=== PATIENT | female | born 1990 | race African-American/Black ===

== ENCOUNTER 2016-06-16 08:51 | Emergency (ER) | payer OTHER ==
[2016-06-16] MEDS ORDERED: Ondansetron HCl/PF 4 MG/2 ML Vial ONE (09:14)
[2016-06-16] MEDS ORDERED: Sodium Chloride 0.9% 1,000 ML ONE ×2 (09:14→10:09)
[2016-06-16] MEDS ORDERED: Acetaminophen 325 MG TAB ONE (09:14)
[2016-06-16 09:32] LABS: #Basophils 0.1 thou/uL (0.0-0.2); #Lymphocytes 0.4 thou/uL (1.20-3.40); #Monocytes 0.4 thou/uL (0.11-0.59); %Eosinophils 0.5 % (0.0-10.0); %Lymphocytes 6.4 % (21.0-51.0); %Monocytes 7.3 % (0.0-10.0); Hematocrit 33.1 % (36.0-47.0); Mean Platelet Volume 5.9 fL (7.4-10.4); White Blood Cell (WBC) Count 5.8 thou/uL (4.8-10.8)
[2016-06-16 09:43] LABS: ALT (SGPT) 10 U/L (0-55); AST (SGOT) 17 U/L (5-34); Alkaline Phosphatase 83 U/L (40-150); Anion Gap 16 mmol/L (10-20); BUN (Urea Nitrogen) 3 mg/dL (7.0-18.7); Bilirubin, Total 1.1 mg/dL (0.2-1.2); Calc. Creatinine Clearance 0 mL/min (70-130); Calcium 9.3 mg/dL (7.8-10.44); Carbon Dioxide 17 mmol/L (22-29); Chloride 101 mmol/L (98-107); Estimated GFR-MDRD Greater than 90; Globulin 3.9 g/dL (2.4-3.5); Protein, Total 7.7 g/dL (6.0-8.3)
[2016-06-16 10:44] LABS: Bilirubin Negative (Negative); Blood, Urine Trace (Negative); Glucose, Urine (Dipstick) Negative (Negative); Ketone, Urine > or equal to 80 mg/dL (Negative); Nitrite Negative (Negative); Protein, Urine (Dipstick) Negative (Neg-Trace)
[2016-06-16 11:01] LABS: Bacteria/HPF Rare-Few HPF (None Seen); RBC/HPF 0-3 HPF (0-3); Yeast-All Forms Rare HPF (None Seen)
== END 2016-06-16 11:05 | disposition home or self-care (01) ==
LOC: NAV ERS 08:51
DX: J10.1 Influenza due to other identified influenza virus with other respiratory manifestations (principal); E86.0 Dehydration; D50.9 Iron deficiency anemia, unspecified; G43.909 Migraine, unspecified, not intractable, without status migrainosus; F31.9 Bipolar disorder, unspecified; F41.9 Anxiety disorder, unspecified; Z87.891 Personal history of nicotine dependence
CPT/HCPCS: 80053; 81003; 81015; 85025; 96361; 96374; J2405; J7050

== ENCOUNTER 2016-06-17 11:02 | Emergency (ER) | payer OTHER | END 2016-06-17 11:35 | disposition home or self-care (01) | LOC: NAV ERS 11:02 | DX: O99.512 Diseases of the respiratory system complicating pregnancy, second trimester (principal); J11.1 Influenza due to unidentified influenza virus with other respiratory manifestations; D50.9 Iron deficiency anemia, unspecified; F41.9 Anxiety disorder, unspecified; F31.9 Bipolar disorder, unspecified; Z87.891 Personal history of nicotine dependence; Z79.899 Other long term (current) drug therapy; Z3A.17 17 weeks gestation of pregnancy | CPT/HCPCS: 99283 ==

== ENCOUNTER 2016-06-30 11:37 | Outpatient (CLI) | payer OTHER ==
--- NOTE | 2016-06-30 14:39 | ULT ---
OB ULTRASOUND: FINDINGS: Real-time images of the pelvis show a single viable intrauterine which is in a cephalic pr esentation. The placenta is more posterior in location without evidence of previa. The heart rate is 166 b.p.m. Review of anatomy shows no anomalies detected. measurements are as follows: BPD 6.1 cm, 24 weeks 5 days Head circumference 22.8 cm, 24 weeks 6 days Abdominal circumference 18.7 cm, 23 weeks 4 days Femur length 4.5 cm, 24 weeks 6 days Amniotic fluid is adequate for this stage of and fluid index is 17.3. IMPRESSION: 1. Single viable intrauterine in a cephalic presentation with overall measurements corres ponding to a gestational age of 24 weeks 1 day with estimated date of delivery of 10/19/16. 2. Placenta which is posterior in location without evidence of previa. POS: [facility]
== END 2016-06-30 11:38 | disposition home or self-care (01) ==
LOC: NAV ULT 11:37
PROVIDERS: ATTEND Family Medicine
DX: O09.899 Supervision of other high risk pregnancies, unspecified trimester (principal)
CPT/HCPCS: 76805

== ENCOUNTER 2016-09-06 13:00 | Emergency (ER) | payer MEDICAID, OTHER ==
[2016-09-06 13:31] LABS: Bilirubin Negative (Negative); Blood, Urine Negative (Negative); Clarity Slightly Cloudy (Clear); Glucose, Urine (Dipstick) Negative (Negative); Leukocyte Trace (Negative); Nitrite Negative (Negative); Protein, Urine (Dipstick) Trace mg/dL (Neg-Trace)
[2016-09-06] MEDS ORDERED: Sodium Chloride 0.9% 1,000 ML ONE ×2 (13:33→15:01)
[2016-09-06 13:37] LABS: Bacteria/HPF Rare-Few HPF (None Seen); RBC/HPF None Seen HPF (0-3)
== END 2016-09-06 15:25 | disposition short-term general hospital (02) ==
LOC: NAV ERS 13:00
DX: O99.89 Other specified diseases and conditions complicating pregnancy, childbirth and the puerperium (principal); R10.2 Pelvic and perineal pain; O99.343 Other mental disorders complicating pregnancy, third trimester; F31.9 Bipolar disorder, unspecified; F41.9 Anxiety disorder, unspecified; Z87.891 Personal history of nicotine dependence; Z79.899 Other long term (current) drug therapy; Z3A.34 34 weeks gestation of pregnancy
CPT/HCPCS: 81003; 81015; 96360; J7050

== ENCOUNTER 2016-09-16 19:41 | Emergency (ER) | payer OTHER ==
[2016-09-16 20:42] LABS: #Eosinphils 0.3 thou/uL (0.0-0.7); #Monocytes 0.6 thou/uL (0.11-0.59); #Neutrophils 7.8 thou/uL (1.40-6.50); %Basophils 0.5 % (0.0-1.0); %Lymphocytes 16.2 % (21.0-51.0); %Monocytes 5.6 % (0.0-10.0); %Neutrophils 74.8 % (42.0-75.0); Hemoglobin 8.8 g/dL (12.0-16.0); Mean Corpuscular HGB CONC 32.5 g/dL (32.0-36.0); Mean Corpuscular Hemoglobin 23.9 pg (27.0-31.0); Mean Corpuscular Volume 73.5 fl (81.0-99.0); Mean Platelet Volume 5.7 fL (7.4-10.4); Platelet Count 287 thou/uL (130-400); RBC Distribution Width 13.8 % (11.5-14.5); Red Blood Cell (RBC) Count 3.67 mill/uL (4.20-5.40); White Blood Cell (WBC) Count 10.5 thou/uL (4.8-10.8)
[2016-09-16 20:54] LABS: ALT (SGPT) 8 U/L (8-55); AST (SGOT) 14 U/L (5-34); Albumin 3.4 g/dL (3.5-5.0); Alkaline Phosphatase 124 U/L (40-150); Anion Gap 15 mmol/L (10-20); BUN (Urea Nitrogen) 8 mg/dL (7.0-18.7); Bilirubin, Total 0.7 mg/dL (0.2-1.2); CK (CPK) 90 U/L (29-168); Calc. Creatinine Clearance 0 mL/min (70-130); Calcium 8.6 mg/dL (7.8-10.44); Carbon Dioxide 18 mmol/L (22-29); Chloride 108 mmol/L (98-107); Estimated GFR-MDRD Greater than 90; Globulin 3.5 g/dL (2.4-3.5); Glucose 91 mg/dL (70-105); Potassium 3.1 mmol/L (3.5-5.1); Protein, Total 6.9 g/dL (6.0-8.3); Sodium 138 mmol/L (136-145)
[2016-09-16 20:55] LABS: CKMB 0.8 ng/mL (0-6.6); Troponin I Less than 0.010 ng/mL (< 0.028)
[2016-09-16 20:58] LABS: Blood, Urine Negative (Negative); Clarity Clear (Clear); Glucose, Urine (Dipstick) Negative (Negative); Leukocyte Small (Negative); Nitrite Negative (Negative); Protein, Urine (Dipstick) 30 mg/dL (Neg-Trace); Specific Gravity, Urine 1.025 (1.005-1.030)
[2016-09-16 21:03] LABS: Bilirubin Negative (Negative); Icto Negative (Negative)
[2016-09-16 21:05] LABS: MDiff Complete? YES; Microcytosis MODERATE=15-30 cells (100X) (0-5/hpf); Ovalocytes SLIGHT = 2-5 cells (100X) (0-1/hpf); PLT Morphology Comment Appears Adequate
[2016-09-16 21:10] LABS: Bacteria/HPF 1+ HPF (None Seen)
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
== END 2016-09-16 20:50 | disposition left against medical advice (07) ==
LOC: NAV ERS 19:41
DX: O9A.211 Injury, poisoning and certain other consequences of external causes complicating pregnancy, first trimester (principal); R07.9 Chest pain, unspecified; O99.331 Smoking (tobacco) complicating pregnancy, first trimester; F17.210 Nicotine dependence, cigarettes, uncomplicated; O99.341 Other mental disorders complicating pregnancy, first trimester; F41.9 Anxiety disorder, unspecified; F31.9 Bipolar disorder, unspecified; Z3A.01 Less than 8 weeks gestation of pregnancy
CPT/HCPCS: 71010; 80053; 81003; 81015; 82550; 82553; 84484; 85025; 87086; 93005

== ENCOUNTER 2016-11-16 21:17 | Emergency (ER) | payer OTHER ==
[2016-11-16] MEDS ORDERED: Ondansetron HCl/PF 4 MG/2 ML Vial ONE (21:57)
[2016-11-16] MEDS ORDERED: Sodium Chloride 0.9% 1,000 ML ONE ×2 (21:57→23:51)
[2016-11-16] MEDS ORDERED: Acetaminophen 500 MG TAB ONE (21:57)
[2016-11-16 22:04] LABS: Bilirubin Negative (Negative); Blood, Urine Large (Negative); Glucose, Urine (Dipstick) Negative (Negative); Leukocyte Small (Negative); Nitrite Negative (Negative); Protein, Urine (Dipstick) 30 mg/dL (Neg-Trace); pH, Urine 6.5 (5.0-9.0)
[2016-11-16 22:15] LABS: Clarity Hazy (Clear)
[2016-11-16 22:18] LABS: Pregnancy Test - Urine (BHCG) Negative (NEGATIVE); Pregu Control Background? CLEAR/WHITE (CLR/WHITE); Pregu Control Bar Appear? YES (CONTROL BAR)
[2016-11-16 22:20] LABS: Hemoglobin 8.8 g/dL (12.0-16.0); Mean Corpuscular HGB CONC 29.8 g/dL (32.0-36.0); Mean Corpuscular Hemoglobin 20.7 pg (27.0-31.0); Mean Corpuscular Volume 69.5 fl (81.0-99.0); Mean Platelet Volume 4.9 fL (7.4-10.4); Platelet Count 385 thou/uL (130-400); RBC Distribution Width 15.1 % (11.5-14.5); Red Blood Cell (RBC) Count 4.23 mill/uL (4.20-5.40); White Blood Cell (WBC) Count 6.9 thou/uL (4.8-10.8)
[2016-11-16 22:21] LABS: %Lymphocytes 9.7 % (21.0-51.0); %Monocytes 7.4 % (0.0-10.0)
[2016-11-16 22:22] LABS: #Lymphocytes 0.7 thou/uL (1.20-3.40); #Monocytes 0.5 thou/uL (0.11-0.59); #Neutrophils 5.5 thou/uL (1.40-6.50)
[2016-11-16 22:23] LABS: #Basophils 0.1 thou/uL (0.0-0.2); #Eosinphils 0.1 thou/uL (0.0-0.7)
[2016-11-16 22:26] LABS: Squamous Epithelial 0-3 HPF (0-3)
[2016-11-16 22:32] LABS: ALT (SGPT) 8 U/L (8-55); AST (SGOT) 14 U/L (5-34); Alkaline Phosphatase 84 U/L (40-150); Anion Gap 14 mmol/L (10-20); BUN (Urea Nitrogen) 7 mg/dL (7.0-18.7); Bilirubin, Total 0.7 mg/dL (0.2-1.2); Calc. Creatinine Clearance 0 mL/min (70-130); Calcium 9.2 mg/dL (7.8-10.44); Carbon Dioxide 22 mmol/L (22-29); Chloride 101 mmol/L (98-107); Estimated GFR-MDRD Greater than 90; Globulin 3.8 g/dL (2.4-3.5); Glucose 99 mg/dL (70-105); Potassium 3.3 mmol/L (3.5-5.1); Protein, Total 7.8 g/dL (6.0-8.3); Sodium 134 mmol/L (136-145)
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
[2016-11-16] MEDS ORDERED: Ketorolac Tromethamine 30 MG/ML VIAL ONE (23:07)
[2016-11-19 12:21] LABS: Chlamydia by PCR DETECTED (NotDetected); GC by PCR Not Detected (NotDetected)
== END 2016-11-17 01:20 | disposition home or self-care (01) ==
LOC: NAV ERS 21:17
DX: J06.9 Acute upper respiratory infection, unspecified (principal); D64.9 Anemia, unspecified; F31.9 Bipolar disorder, unspecified; F41.9 Anxiety disorder, unspecified; Z87.891 Personal history of nicotine dependence
CPT/HCPCS: 71020; 80053; 81001; 81025; 83605; 85025; 87040; 87086; 87491; 87591; 96361; 96374; 96375; J1885; J2405; J7050

== ENCOUNTER 2016-12-02 00:02 | Emergency (ER) | payer OTHER | END 2016-12-02 00:34 | disposition home or self-care (01) | LOC: NAV ERS 00:02 | DX: K52.9 Noninfective gastroenteritis and colitis, unspecified (principal); G43.909 Migraine, unspecified, not intractable, without status migrainosus; F31.9 Bipolar disorder, unspecified; F41.9 Anxiety disorder, unspecified; F17.210 Nicotine dependence, cigarettes, uncomplicated; Z79.899 Other long term (current) drug therapy | CPT/HCPCS: 99283 ==

== ENCOUNTER 2017-03-23 11:48 | Emergency (ER) | payer OTHER ==
[2017-03-23] MEDS ORDERED: Ondansetron HCl/PF 4 MG/2 ML Vial ONE (12:15)
[2017-03-23] MEDS ORDERED: Sodium Chloride 0.9% 1,000 ML ONE (12:15)
[2017-03-23] MEDS ORDERED: Ketorolac Tromethamine 30 MG/ML VIAL ONE (12:15)
[2017-03-23 12:54] LABS: #Basophils 0.1 thou/uL (0.0-0.2); #Eosinphils 0.6 thou/uL (0.0-0.7); #Lymphocytes 1.4 thou/uL (1.20-3.40); #Monocytes 0.7 thou/uL (0.11-0.59); #Neutrophils 10.2 thou/uL (1.40-6.50); %Basophils 0.5 % (0.0-1.0); %Eosinophils 4.7 % (0.0-10.0); %Lymphocytes 10.7 % (21.0-51.0); %Monocytes 5.6 % (0.0-10.0); %Neutrophils 78.5 % (42.0-75.0); Hemoglobin 9.2 g/dL (12.0-16.0); Mean Corpuscular HGB CONC 29.7 g/dL (32.0-36.0); Mean Corpuscular Volume 70.6 fl (81.0-99.0); Mean Platelet Volume 6.8 fL (7.4-10.4); Platelet Count 472 thou/uL (130-400)
[2017-03-23 13:00] LABS: ALT (SGPT) 10 U/L (8-55); AST (SGOT) 15 U/L (5-34); Albumin 4.2 g/dL (3.5-5.0); Alkaline Phosphatase 80 U/L (40-150); Anion Gap 13 mmol/L (10-20); BUN (Urea Nitrogen) 8 mg/dL (7.0-18.7); Calc. Creatinine Clearance 0 mL/min (70-130); Calcium 9.5 mg/dL (7.8-10.44); Carbon Dioxide 24 mmol/L (22-29); Chloride 103 mmol/L (98-107); Estimated GFR-MDRD Greater than 90; Globulin 3.7 g/dL (2.4-3.5); Glucose 97 mg/dL (70-105); Potassium 3.6 mmol/L (3.5-5.1); Protein, Total 7.9 g/dL (6.0-8.3); Sodium 136 mmol/L (136-145)
[2017-03-23 13:33] LABS: Bilirubin Negative (Negative); Blood, Urine Large (Negative); Clarity Turbid (Clear); Glucose, Urine (Dipstick) Negative (Negative); Leukocyte Small (Negative); Nitrite Negative (Negative); Protein, Urine (Dipstick) Negative (Neg-Trace); Urobilinogen 0.2 mg/dL (0.2-1.0); pH, Urine 7.5 (5.0-9.0)
[2017-03-23 13:41] LABS: Bacteria/HPF Rare-Few HPF (None Seen); Other Microscopic Description NO
[2017-03-23 13:42] LABS: Phencyclidine (PCP) Not Detected (NotDetected); THC/Cannabinoid Screen Detected (NotDetected)
[2017-03-23 13:43] LABS: Amphetamine Not Detected (NotDetected); Barbiturates Screen Not Detected (NotDetected); Benzodiazepine Screen Not Detected (NotDetected); Cocaine Metabolite Screen Detected (NotDetected); Medtox Control Line Valid? VALID (VALID); Methadone Not Detected (NotDetected); Methamphetamine Not Detected (NotDetected); Opiate Screen Not Detected (NotDetected); Oxycodone Screen Not Detected (NotDetected); Tricyclic Screen Not Detected (NotDetected)
[2017-03-23] MEDS ORDERED: Clindamycin 150 MG CAP ONE (14:00)
--- NOTE | 2017-03-23 14:10 | CT ---
CT OF HEAD: Date: 03/23/17 COMPARISON: 08/26/09. HISTORY: Worsening jaw pain, odontogenic symptoms. TECHNIQUE: Serial axial CT imaging obtained at 5 mm intervals from the vertex through the skull base without con trast. FINDINGS: There is mild mucosal thickening involving the ethmoid air cells on the left. Imaged paranasal sinuse s/mastoid air cells are otherwise unremarkable. There is no displaced calvarial fracture, intracranial hemorrhage, midline shift, or mass effect. Det salazar assessment of the brain parenchyma slightly limited on the basis of head motion artifact. IMPRESSION: No acute findings. POS: [facility]
== END 2017-03-23 14:07 | disposition home or self-care (01) ==
LOC: NAV ERS 11:48
DX: F14.10 Cocaine abuse, uncomplicated (principal); J32.9 Chronic sinusitis, unspecified; K08.89 Other specified disorders of teeth and supporting structures; G43.909 Migraine, unspecified, not intractable, without status migrainosus; F41.9 Anxiety disorder, unspecified; F31.9 Bipolar disorder, unspecified; F17.210 Nicotine dependence, cigarettes, uncomplicated
CPT/HCPCS: 70450; 80053; 80306; 81003; 81015; 85025; 96361; 96374; 96375; 99406; J1885; J2405; J7050

== ENCOUNTER 2017-04-26 17:12 | Emergency (ER) | payer OTHER ==
[2017-04-26] MEDS ORDERED: Fluorescein Opthalmic Strip ONE (17:43)
== END 2017-04-26 18:24 | disposition home or self-care (01) ==
LOC: NAV ERS 17:12
DX: H10.9 Unspecified conjunctivitis (principal); D50.9 Iron deficiency anemia, unspecified; F31.9 Bipolar disorder, unspecified; F41.9 Anxiety disorder, unspecified; F17.210 Nicotine dependence, cigarettes, uncomplicated; G43.909 Migraine, unspecified, not intractable, without status migrainosus
CPT/HCPCS: 99283

== ENCOUNTER 2018-01-10 10:47 | Emergency (ER) | payer OTHER, SELFPAY ==
[2018-01-10 11:18] LABS: Bilirubin Negative (Negative); Blood, Urine Negative (Negative); Clarity Clear (Clear); Glucose, Urine (Dipstick) Negative (Negative); Leukocyte Negative (Negative); Nitrite Negative (Negative); Protein, Urine (Dipstick) Negative (Neg-Trace); pH, Urine 7.5 (5.0-9.0)
[2018-01-10 11:19] LABS: Pregnancy Test - Urine (BHCG) Negative (Negative); Pregu Control Background? CLEAR/WHITE (CLR/WHITE); Pregu Control Bar Appear? YES (CONTROL BAR)
[2018-01-10] MEDS ORDERED: Sodium Chloride 0.9% 1,000 ML ONE (11:32)
[2018-01-10] MEDS ORDERED: Ondansetron HCl/PF 4 MG/2 ML Vial ONE (11:32)
[2018-01-10 13:21] LABS: #Basophils 0.1 thou/uL (0.0-0.2); #Eosinphils 0.4 thou/uL (0.0-0.7); #Lymphocytes 1.4 thou/uL (1.20-3.40); #Monocytes 0.4 thou/uL (0.11-0.59); #Neutrophils 5.3 thou/uL (1.40-6.50); %Basophils 0.8 % (0.0-1.0); %Eosinophils 5.9 % (0.0-10.0); %Lymphocytes 18.4 % (21.0-51.0); %Monocytes 5.6 % (0.0-10.0); %Neutrophils 69.3 % (42.0-75.0); Hemoglobin 8.8 g/dL (12.0-16.0); Mean Corpuscular HGB CONC 30.3 g/dL (32.0-36.0); Mean Corpuscular Hemoglobin 21.1 pg (27.0-31.0); Mean Corpuscular Volume 69.7 fL (78.0-98.0); Mean Platelet Volume 6.3 fL (7.4-10.4); Platelet Count 321 thou/uL (130-400); RBC Distribution Width 15.2 % (11.5-14.5); Red Blood Cell (RBC) Count 4.14 mill/uL (4.20-5.40); White Blood Cell (WBC) Count 7.6 thou/uL (4.8-10.8)
[2018-01-10 13:22] LABS: Anisocytosis SLIGHT = 6-15 cells (100X) (0-5/hpf); Elliptocytes SLIGHT = 2-5 cells (100X) (0-1/hpf); Hypochromia SLIGHT = 6-15 cells (100X) (0-5/hpf); MDiff Complete? YES; Microcytosis MODERATE=15-30 cells (100X) (0-5/hpf); Ovalocytes MODERATE= 6-15 cells (100X) (0-1/hpf); PLT Morphology Comment Appears Adequate
[2018-01-10 13:25] LABS: ALT (SGPT) 9 U/L (8-55); AST (SGOT) 16 U/L (5-34); Albumin 3.9 g/dL (3.5-5.0); Alkaline Phosphatase 64 U/L (40-150); Anion Gap 12 mmol/L (10-20); BUN (Urea Nitrogen) 10 mg/dL (7.0-18.7); Bilirubin, Total 0.8 mg/dL (0.2-1.2); Calc. Creatinine Clearance 0 mL/min (70-130); Calcium 8.9 mg/dL (7.8-10.44); Carbon Dioxide 22 mmol/L (22-29); Chloride 109 mmol/L (98-107); Estimated GFR-MDRD Greater than 90; Globulin 2.8 g/dL (2.4-3.5); Glucose 84 mg/dL (70-105); Lipase 47 U/L (8-78); Potassium 4.3 mmol/L (3.5-5.1); Protein, Total 6.7 g/dL (6.0-8.3); Sodium 139 mmol/L (136-145)
== END 2018-01-10 13:39 | disposition home or self-care (01) ==
LOC: NAV ERS 10:47
DX: K52.9 Noninfective gastroenteritis and colitis, unspecified (principal); H10.10 Acute atopic conjunctivitis, unspecified eye; D64.9 Anemia, unspecified; F31.9 Bipolar disorder, unspecified; F41.9 Anxiety disorder, unspecified; F17.210 Nicotine dependence, cigarettes, uncomplicated
CPT/HCPCS: 36415; 80053; 81003; 81025; 83690; 85025; 96361; 96374; J2405; J7050

== ENCOUNTER 2018-01-28 13:38 | Emergency (ER) | payer OTHER ==
[2018-01-28] MEDS ORDERED: Sodium Chloride 0.9% 1,000 ML ONE (14:35)
[2018-01-28 14:50] LABS: PTT 30.3 SEC (22.9-36.1); Prothrombin Time 13.4 SEC (12.0-14.7)
[2018-01-28 14:52] LABS: #Basophils 0.1 thou/uL (0.0-0.2); #Eosinphils 0.5 thou/uL (0.0-0.7); #Lymphocytes 1.8 thou/uL (1.20-3.40); #Monocytes 0.4 thou/uL (0.11-0.59); #Neutrophils 5.8 thou/uL (1.40-6.50); %Basophils 0.8 % (0.0-1.0); %Lymphocytes 20.9 % (21.0-51.0); %Neutrophils 67.4 % (42.0-75.0); Hemoglobin 9.9 g/dL (12.0-16.0); Mean Corpuscular HGB CONC 30.2 g/dL (32.0-36.0); Mean Corpuscular Hemoglobin 21.3 pg (27.0-31.0); Mean Corpuscular Volume 70.6 fL (78.0-98.0); Platelet Count 479 thou/uL (130-400); RBC Distribution Width 16.8 % (11.5-14.5); Red Blood Cell (RBC) Count 4.65 mill/uL (4.20-5.40); White Blood Cell (WBC) Count 8.6 thou/uL (4.8-10.8)
[2018-01-28 14:54] LABS: Pregnancy Test - Urine (BHCG) Negative (Negative); Pregu Control Background? CLEAR/WHITE (CLR/WHITE); Pregu Control Bar Appear? YES (CONTROL BAR); Specific Gravity 1.015 (1.002-1.036)
[2018-01-28 14:58] LABS: ALT (SGPT) 14 U/L (8-55); AST (SGOT) 19 U/L (5-34); Albumin 4.5 g/dL (3.5-5.0); Alkaline Phosphatase 73 U/L (40-150); Anion Gap 14 mmol/L (10-20); BUN (Urea Nitrogen) 17 mg/dL (7.0-18.7); Bilirubin, Total 0.7 mg/dL (0.2-1.2); Calc. Creatinine Clearance 0 mL/min (70-130); Calcium 9.9 mg/dL (7.8-10.44); Carbon Dioxide 23 mmol/L (22-29); Chloride 105 mmol/L (98-107); Estimated GFR-MDRD Greater than 90; Globulin 3.4 g/dL (2.4-3.5); Glucose 100 mg/dL (70-105); Potassium 3.8 mmol/L (3.5-5.1); Protein, Total 7.9 g/dL (6.0-8.3); Sodium 138 mmol/L (136-145)
[2018-01-28 15:21] LABS: Amphetamine Not Detected (NotDetected); Barbiturates Screen Not Detected (NotDetected); Benzodiazepine Screen Not Detected (NotDetected); Cocaine Metabolite Screen Not Detected (NotDetected); Medtox Control Line Valid? VALID (VALID); Methadone Not Detected (NotDetected); Methamphetamine Not Detected (NotDetected); Opiate Screen Not Detected (NotDetected); Oxycodone Screen Not Detected (NotDetected); Phencyclidine (PCP) Not Detected (NotDetected); THC/Cannabinoid Screen Not Detected (NotDetected); Tricyclic Screen Not Detected (NotDetected)
--- NOTE | 2018-01-28 15:25 | CT ---
CT BRAIN WITHOUT CONTRAST: Date: 01/28/18 HISTORY: Headache. FINDINGS: Comparison made with exam of 03/23/17. No evidence of acute infarct, hemorrhage, midline shift, or abnormal extra-axial fluid collections ar e seen. The ventricular size is normal and the basilar cisterns are patent. The bony calvarium is int act. There is mucosal disease in the paranasal sinuses. IMPRESSION: No CT evidence of acute intracranial process. POS: [facility]
[2018-01-28 16:03] LABS: MDiff Complete? YES; Ovalocytes MODERATE= 6-15 cells (100X) (0-1/hpf); PLT Morphology Comment Appears Adequate; Poikilocytosis SLIGHT = 6-15 cells (100X) (0-5/hpf)
== END 2018-01-28 16:30 | disposition home or self-care (01) ==
LOC: NAV ERS 13:38
DX: R51 Headache (principal); F41.9 Anxiety disorder, unspecified; F31.9 Bipolar disorder, unspecified; F17.210 Nicotine dependence, cigarettes, uncomplicated; Z79.899 Other long term (current) drug therapy
CPT/HCPCS: 70450; 80053; 80306; 81025; 85025; 85610; 85730; 86140; 93005; 94760; 96360; 96361; J7050

== ENCOUNTER 2018-04-19 07:44 | Emergency (ER) | payer OTHER | END 2018-04-19 08:25 | disposition home or self-care (01) | LOC: NAV ERS 07:44 | DX: N89.8 Other specified noninflammatory disorders of vagina (principal); D50.9 Iron deficiency anemia, unspecified; F41.9 Anxiety disorder, unspecified; F31.9 Bipolar disorder, unspecified; F17.210 Nicotine dependence, cigarettes, uncomplicated | CPT/HCPCS: 99281 ==

== ENCOUNTER 2018-05-10 19:46 | Emergency (ER) | payer OTHER ==
[2018-05-10 20:22] LABS: BHCG - Serum Negative (NEGATIVE); Pregs Control Bar Appear? YES (CONTROL BAR)
[2018-05-10] MEDS ORDERED: Ondansetron ODT 4 MG TAB ONE (20:27)
[2018-05-10] MEDS ORDERED: Ketorolac Tromethamine 30 MG/ML VIAL ONE (20:27)
== END 2018-05-10 21:54 | disposition home or self-care (01) ==
LOC: NAV ERS 19:46
DX: K52.9 Noninfective gastroenteritis and colitis, unspecified (principal); D50.9 Iron deficiency anemia, unspecified; G43.909 Migraine, unspecified, not intractable, without status migrainosus; F31.9 Bipolar disorder, unspecified; F41.9 Anxiety disorder, unspecified; F17.210 Nicotine dependence, cigarettes, uncomplicated
CPT/HCPCS: 84703; 96372; 96374; J1885; Q0162

== ENCOUNTER 2018-06-30 18:25 | Emergency (ER) | payer BC, OTHER | END 2018-06-30 19:29 | disposition home or self-care (01) | LOC: NAV ERS 18:25 | DX: J02.9 Acute pharyngitis, unspecified (principal); D50.9 Iron deficiency anemia, unspecified; G43.909 Migraine, unspecified, not intractable, without status migrainosus; F41.9 Anxiety disorder, unspecified; F31.9 Bipolar disorder, unspecified; F17.210 Nicotine dependence, cigarettes, uncomplicated | CPT/HCPCS: 87081; 87430; 99283 ==

== ENCOUNTER 2018-07-08 14:54 | Emergency (ER) | payer BC, OTHER ==
[2018-07-08] MEDS ORDERED: predniSONE 20 MG TAB ONE (15:14)
== END 2018-07-08 15:19 | disposition home or self-care (01) ==
LOC: NAV ERS 14:54
DX: L50.0 Allergic urticaria (principal); D50.9 Iron deficiency anemia, unspecified; G43.909 Migraine, unspecified, not intractable, without status migrainosus; F31.9 Bipolar disorder, unspecified; F17.210 Nicotine dependence, cigarettes, uncomplicated
CPT/HCPCS: 99282

== ENCOUNTER 2018-07-11 17:21 | Emergency (ER) | payer BC, OTHER ==
[2018-07-11] MEDS ORDERED: Azithromycin 250 MG TAB ONE (18:07)
== END 2018-07-11 18:12 | disposition home or self-care (01) ==
LOC: NAV ERS 17:21
DX: S40.812A Abrasion of left upper arm, initial encounter (principal); S40.811A Abrasion of right upper arm, initial encounter; J01.90 Acute sinusitis, unspecified; B86 Scabies; D50.0 Iron deficiency anemia secondary to blood loss (chronic); G43.909 Migraine, unspecified, not intractable, without status migrainosus; F41.9 Anxiety disorder, unspecified; F31.9 Bipolar disorder, unspecified; F17.210 Nicotine dependence, cigarettes, uncomplicated; X58.XXXA Exposure to other specified factors, initial encounter
CPT/HCPCS: 99283

== ENCOUNTER 2019-05-15 16:56 | Emergency (ER) | payer BC, OTHER ==
[2019-05-15] MEDS ORDERED: Acetaminophen 500 MG TAB ONE ×2 (17:17)
[2019-05-15] MEDS ORDERED: Ibuprofen 800 MG TAB ONE (18:10)
[2019-05-15] MEDS ORDERED: Ondansetron ODT 4 MG TAB ONE (18:10)
== END 2019-05-15 19:14 | disposition home or self-care (01) ==
LOC: NAV ERS 16:56
DX: B34.9 Viral infection, unspecified (principal); M79.10 Myalgia, unspecified site; D50.9 Iron deficiency anemia, unspecified; G43.909 Migraine, unspecified, not intractable, without status migrainosus; F41.9 Anxiety disorder, unspecified; F31.9 Bipolar disorder, unspecified; F17.210 Nicotine dependence, cigarettes, uncomplicated
CPT/HCPCS: 87804; 99283; Q0162

== ENCOUNTER 2020-01-28 12:18 | Emergency (ER) | payer OTHER ==
[2020-01-28] MEDS ORDERED: Fluorescein Opthalmic Strip ONE (12:33)
[2020-01-28] MEDS ORDERED: Tetracaine HCl 0.5% Ophth Soln 2 ML Bottle ONE (12:33)
== END 2020-01-28 13:55 | disposition short-term general hospital (02) ==
LOC: NAV ERS 12:18
DX: S05.02XA Injury of conjunctiva and corneal abrasion without foreign body, left eye, initial encounter (principal); S05.01XA Injury of conjunctiva and corneal abrasion without foreign body, right eye, initial encounter; H16.003 Unspecified corneal ulcer, bilateral; D50.9 Iron deficiency anemia, unspecified; F31.9 Bipolar disorder, unspecified; F41.9 Anxiety disorder, unspecified; F17.210 Nicotine dependence, cigarettes, uncomplicated
CPT/HCPCS: 99284

== ENCOUNTER 2021-09-21 23:02 | Emergency (ER) | payer OTHER | END 2021-09-22 03:07 | disposition short-term general hospital (02) | LOC: NAV ERS 23:02 | DX: H54.61 Unqualified visual loss, right eye, normal vision left eye (principal); H16.003 Unspecified corneal ulcer, bilateral; H44.009 Unspecified purulent endophthalmitis, unspecified eye; D50.9 Iron deficiency anemia, unspecified; F17.210 Nicotine dependence, cigarettes, uncomplicated | CPT/HCPCS: 99284 ==

== ENCOUNTER → 2021-10-30 | Emergency (ER) | payer OTHER ==
[~2021-10-30] MED LIST: Acetaminophen 500 MG TAB ONE; Cefepime 2 GM VIAL ONE; Sodium Chloride 0.9% 100 ML ONE; Sodium Chloride 0.9% 250 ML 250 ML ONE; Sodium Chloride 0.9% 500 ML ONE
[2021-10-31 00:34] LABS: BHCG - Serum Negative (NEGATIVE); Pregs Control Bar Appear? YES (CONTROL BAR)
[2021-10-31 00:40] LABS: ALT (SGPT) 20 U/L (8-55); AST (SGOT) 19 U/L (5-34); Acetaminophen Less than 10.0 mcg/mL (10.0-30.0); Albumin 4.2 g/dL (3.5-5.0); Alcohol Less than 10 mg/dL (Less than 10); Alkaline Phosphatase 76 U/L (40-110); Anion Gap 14 mmol/L (10-20); BUN (Urea Nitrogen) 13 mg/dL (7.0-18.7); Bilirubin, Total 0.9 mg/dL (0.2-1.2); Calc. Creatinine Clearance 0 mL/min (70-130); Carbon Dioxide 22 mmol/L (22-29); Chloride 102 mmol/L (98-107); Estimated GFR 102; Globulin 2.9 g/dL (2.4-3.5); Glucose 93 mg/dL (70-105); Potassium 3.4 mmol/L (3.5-5.1); Protein, Total 7.1 g/dL (6.0-8.3); Salicylate Less than 8.0 mg/dL (15.0-30.0); Sodium 135 mmol/L (136-145)
[2021-10-31 00:51] LABS: Anisocytosis SLIGHT = 6-15 cells (100X) (0-5/hpf); Elliptocytes SLIGHT = 2-5 cells (100X) (0-1/hpf); Hemoglobin 7.5 g/dL (12.0-16.0); Hypochromia MODERATE=16-30 cells (100X) (0-5/hpf); MDiff Complete? YES; Mean Corpuscular HGB CONC 28.4 g/dL (32.0-36.0); Mean Corpuscular Hemoglobin 18.8 pg (27.0-31.0); Mean Corpuscular Volume 66.3 fL (78.0-98.0); Mean Platelet Volume 6.2 fL (7.4-10.4); Microcytosis MODERATE=15-30 cells (100X) (0-5/hpf); Platelet Count 326 thou/uL (130-400); Polychromasia SLIGHT = 2-3 cells (100X) (0-2/hpf); RBC Distribution Width 21.1 % (11.5-14.5); Red Blood Cell (RBC) Count 3.98 mill/uL (4.20-5.40); Schistocytes SLIGHT = 2-5 cells (100X) (0-1/hpf); White Blood Cell (WBC) Count 5.5 thou/uL (4.8-10.8)
[2021-10-31 02:17] LABS: Bilirubin Negative (Negative); Blood, Urine Moderate (Negative); Clarity Clear (Clear); Glucose, Urine (Dipstick) Negative (Negative); Ketone, Urine Negative (Negative); Leukocyte Negative (Negative); Nitrite Negative (Negative); Protein, Urine (Dipstick) Negative (Neg-Trace); Urobilinogen 0.2 mg/dL (Less than 2); pH, Urine 6.5 (5.0-9.0)
[2021-10-31 02:19] LABS: Bacteria/HPF None Seen HPF (None Seen); RBC/HPF None Seen HPF (0-3); Squamous Epithelial None Seen HPF (0-3); WBC/HPF None Seen HPF (0-3)
[2021-10-31 02:25] LABS: Amphetamine Detected (NotDetected); Barbiturates Screen Not Detected (NotDetected); Benzodiazepine Screen Not Detected (NotDetected); Cocaine Metabolite Screen Not Detected (NotDetected); Medtox Control Line Valid? VALID (VALID); Methadone Not Detected (NotDetected); Methamphetamine Detected (NotDetected); Opiate Screen Not Detected (NotDetected); Oxycodone Screen Not Detected (NotDetected); Phencyclidine (PCP) Not Detected (NotDetected); THC/Cannabinoid Screen Detected (NotDetected); Tricyclic Screen Not Detected (NotDetected)
[2021-10-31 02:39] LABS: SARS-CoV-2 NAA Rapid Test DETECTED (NotDetected)
[2021-10-31 04:41] LABS: Hemoglobin 6.7 g/dL (12.0-16.0)
[2021-10-31 13:23] LABS: Hemoglobin 8.9 g/dL (12.0-16.0); Platelet Count 388 thou/uL (130-400)
== END ==
LOC: NAV ERS 23:09
DX: U07.1 COVID-19 (principal); D50.9 Iron deficiency anemia, unspecified; F15.10 Other stimulant abuse, uncomplicated; F17.210 Nicotine dependence, cigarettes, uncomplicated
CPT/HCPCS: 36430; 70450; 71045; 74177; 80053; 80306; 80307; 81003; 81015; 83605; 84703; 85025; 86850; 86900; 86901; 87040; 87804; 93005; 96361; 96365; 96375; J0692; J3370; J3490; J7030; J7050; P9016; U0002

== ENCOUNTER 2022-08-17 09:10 | Emergency (ER) | payer OTHER ==
[2022-08-17 10:35] LABS: ALT (SGPT) 14 U/L (8-55); AST (SGOT) 16 U/L (5-34); Albumin 4.8 g/dL (3.5-5.0); Alkaline Phosphatase 83 U/L (40-110); Anion Gap 18 mmol/L (10-20); BUN (Urea Nitrogen) 12 mg/dL (7.0-18.7); Bilirubin, Total 1.3 mg/dL (0.2-1.2); Calc. Creatinine Clearance 0 mL/min (70-130); Carbon Dioxide 20 mmol/L (22-29); Chloride 103 mmol/L (98-107); Estimated GFR 106; Globulin 3.7 g/dL (2.4-3.5); Glucose 110 mg/dL (70-105); Lipase 82 U/L (8-78); Magnesium 2.1 mg/dL (1.6-2.6); Potassium 3.5 mmol/L (3.5-5.1); Protein, Total 8.5 g/dL (6.0-8.3); Sodium 137 mmol/L (136-145)
[2022-08-17 10:40] LABS: #Eosinphils 0.5 thou/uL (0.0-0.7); #Lymphocytes 1.3 thou/uL (1.20-3.40); #Monocytes 0.6 thou/uL (0.11-0.59); #Neutrophils 4.8 thou/uL (1.40-6.50); %Basophils 0.6 % (0.0-1.0); %Eosinophils 7.1 % (0.0-10.0); %Lymphocytes 18.2 % (21.0-51.0); %Monocytes 8.4 % (0.0-10.0); %Neutrophils 65.7 % (42.0-75.0); Hemoglobin 10.6 g/dL (12.0-16.0); Mean Corpuscular HGB CONC 29.2 g/dL (32.0-36.0); Mean Corpuscular Volume 65.2 fl (78.0-98.0); Mean Platelet Volume 5.6 fL (7.4-10.4); Platelet Count 426 10x3/uL (130-400); RBC Distribution Width 16.6 % (11.5-14.5); Red Blood Cell (RBC) Count 5.56 mill/uL (4.20-5.40); White Blood Cell (WBC) Count 7.3 10x3/uL (4.8-10.8)
[2022-08-17 11:32] LABS: Bilirubin Negative (Negative); Blood, Urine Trace (Negative); Clarity Clear (Clear); Glucose, Urine (Dipstick) Negative (Negative); Ketone, Urine 15 mg/dL (Negative); Leukocyte Negative (Negative); Nitrite Negative (Negative); Protein, Urine (Dipstick) Negative (Neg-Trace)
[2022-08-17 11:37] LABS: Bacteria/HPF None Seen HPF (None Seen); RBC/HPF None Seen HPF (0-3); Squamous Epithelial 0-3 HPF (0-3); WBC/HPF None Seen HPF (0-3)
[2022-08-17 11:38] LABS: Pregnancy Test - Urine (BHCG) Negative (Negative)
[2022-08-17 11:40] LABS: Pregu Control Background? CLEAR/WHITE (CLR/WHITE); Pregu Control Bar Appear? YES (CONTROL BAR)
== END 2022-08-17 12:00 ==
LOC: NAV ERS 09:10
DX: F32.A Depression, unspecified (principal); E86.0 Dehydration; F17.210 Nicotine dependence, cigarettes, uncomplicated; D50.0 Iron deficiency anemia secondary to blood loss (chronic)
CPT/HCPCS: 71045; 80053; 81003; 81015; 81025; 83605; 83690; 83735; 84443; 84484; 85025; 85379; 93005; 96360

== ENCOUNTER 2023-04-08 17:46 | Emergency (ER) | payer OTHER ==
[2023-04-08 18:42] LABS: Acetaminophen Less than 10 mcg/mL (10.0-30.0); Alcohol Less than 10.0 mg/dL (Less than 10)
[2023-04-08 18:44] LABS: ALT (SGPT) 17 U/L (8-55); AST (SGOT) 19 U/L (5-34); Albumin 4.2 g/dL (3.5-5.0); Alkaline Phosphatase 84 U/L (40-110); Anion Gap 14 mmol/L (10-20); BUN (Urea Nitrogen) 10 mg/dL (7.0-18.7); Bilirubin, Total 0.6 mg/dL (0.2-1.2); Calc. Creatinine Clearance 0 mL/min (70-130); Calcium 9.6 mg/dL (7.8-10.44); Carbon Dioxide 23 mmol/L (22-29); Chloride 105 mmol/L (98-107); Estimated GFR 115; Globulin 3.8 g/dL (2.4-3.5); Glucose 116 mg/dL (70-105); Potassium 4.4 mmol/L (3.5-5.1); Sodium 138 mmol/L (136-145)
[2023-04-08 18:50] LABS: #Eosinphils 0.4 thou/uL (0.0-0.7); #Lymphocytes 1.5 thou/uL (1.20-3.40); #Monocytes 0.4 thou/uL (0.11-0.59); #Neutrophils 3.8 thou/uL (1.40-6.50); %Basophils 0.7 % (0.0-1.0); %Eosinophils 5.9 % (0.0-10.0); %Lymphocytes 24.7 % (21.0-51.0); %Monocytes 6.8 % (0.0-10.0); %Neutrophils 61.9 % (42.0-75.0); Hemoglobin 6.9 g/dL (12.0-16.0); Mean Corpuscular HGB CONC 28.6 g/dL (32.0-36.0); Mean Corpuscular Hemoglobin 17.3 pg (27.0-31.0); Mean Corpuscular Volume 60.5 fl (78.0-98.0); Platelet Count 660 10x3/uL (130-400); RBC Distribution Width 15.7 % (11.5-14.5); Red Blood Cell (RBC) Count 3.96 mill/uL (4.20-5.40); White Blood Cell (WBC) Count 6.2 10x3/uL (4.8-10.8)
[2023-04-08] MEDS ORDERED: Ondansetron PF 4 MG/2 ML Vial ONE (19:06)
[2023-04-08 19:17] LABS: Salicylate Less than 8.0 mg/dL (15.0-30.0)
[2023-04-08] MEDS ORDERED: Clindamycin/D5W 900 mg/50 ml Premix Bag ONE (20:28)
== END 2023-04-08 22:35 | disposition short-term general hospital (02) ==
LOC: NAV ERS 17:46
DX: L03.115 Cellulitis of right lower limb (principal); L03.116 Cellulitis of left lower limb; D75.839 Thrombocytosis, unspecified; D64.9 Anemia, unspecified; F17.210 Nicotine dependence, cigarettes, uncomplicated
CPT/HCPCS: 36430; 80053; 80307; 83605; 85025; 85379; 86850; 86900; 86901; 87040; 96365; 96375; J2405; J3490; P9016

== ENCOUNTER 2023-07-15 03:51 | Emergency (ER) | payer OTHER ==
[2023-07-15] MEDS ORDERED: Rabies Vaccine Human 2.5 UNITS VIAL IM ONE (04:30)
[2023-07-15] MEDS ORDERED: Rabies Vaccine Human 2.5 UNITS VIAL ONE (04:36)
[2023-07-15] MEDS ORDERED: Rabies Immune Globulin/PF 300 UNITS/ML VIAL ONE (04:36)
[2023-07-15] MEDS ORDERED: Bacitracin 1 PK ONE (04:37)
[2023-07-15] MEDS ORDERED: Clindamycin 150 MG CAP ONE (04:46)
[2023-07-15] MEDS ORDERED: Cipro 250 MG TAB ONE (04:46)
== END 2023-07-15 05:43 | disposition home or self-care (01) ==
LOC: NAV ERS 03:51
DX: S01.431A Puncture wound without foreign body of right cheek and temporomandibular area, initial encounter (principal); F17.210 Nicotine dependence, cigarettes, uncomplicated; W54.0XXA Bitten by dog, initial encounter
CPT/HCPCS: 90375; 90471; 90675; 96372

== ENCOUNTER 2023-07-16 13:47 | Emergency (ER) | payer OTHER, SELFPAY ==
[2023-07-16] MEDS ORDERED: Amoxicillin/Potassium Clav 875 MG TAB ONE (14:22)
== END 2023-07-16 15:19 | disposition home or self-care (01) ==
LOC: NAV ERS 13:47
DX: S01.85XA Open bite of other part of head, initial encounter (principal); F17.210 Nicotine dependence, cigarettes, uncomplicated; W54.0XXA Bitten by dog, initial encounter
CPT/HCPCS: 99283

== ENCOUNTER 2023-10-07 11:43 | Emergency (ER) | payer SELFPAY ==
[2023-10-07] MEDS ORDERED: traMADol HCl 50 MG TAB ONE (12:11)
[2023-10-07] MEDS ORDERED: Ketorolac Tromethamine 60 MG/2 ML VIAL ONE (12:11)
== END 2023-10-07 12:35 | disposition home or self-care (01) ==
LOC: NAV ERS 11:43
DX: K04.7 Periapical abscess without sinus (principal); R03.0 Elevated blood-pressure reading, without diagnosis of hypertension; F17.210 Nicotine dependence, cigarettes, uncomplicated
CPT/HCPCS: 96372; 99282; J1885

== ENCOUNTER 2023-11-02 04:11 | Emergency (ER) | payer OTHER, SELFPAY ==
[2023-11-02] MEDS ORDERED: Ketorolac Tromethamine 60 MG/2 ML VIAL ONE (04:30)
[2023-11-02] MEDS ORDERED: traMADol HCl 50 MG TAB ONE (06:07)
== END 2023-11-02 06:15 | disposition home or self-care (01) ==
LOC: NAV ERS 04:11
DX: K08.89 Other specified disorders of teeth and supporting structures (principal); F17.210 Nicotine dependence, cigarettes, uncomplicated
CPT/HCPCS: 96372; 99283; J1885

== ENCOUNTER 2024-04-11 22:50 | Emergency (ER) | payer OTHER ==
[2024-04-11] MEDS ORDERED: Clindamycin 150 MG CAP ONE (23:27)
[2024-04-11] MEDS ORDERED: Lidocaine 1% w/Epinephrine 1:100K 20 ML VIAL ONE (23:27)
[2024-04-11] MEDS ORDERED: HYDROcodone/Acetaminophen 5/325 mg Tablet ONE (23:28)
[2024-04-12 00:39] LABS: Pregnancy Test - Urine (BHCG) Negative (Negative); Pregu Control Background? CLEAR/WHITE (CLR/WHITE); Pregu Control Bar Appear? YES (CONTROL BAR); Specific Gravity 1.025 (1.002-1.036)
== END 2024-04-12 01:00 | disposition home or self-care (01) ==
LOC: NAV ERS 22:50
DX: L02.01 Cutaneous abscess of face (principal); I10 Essential (primary) hypertension; F17.210 Nicotine dependence, cigarettes, uncomplicated
CPT/HCPCS: 10060; 81025

== ENCOUNTER 2024-04-19 14:45 | Emergency (ER) | payer OTHER ==
[2024-04-19] MEDS ORDERED: Lidocaine 1% w/Epinephrine 1:100K 20 ML VIAL ONE (15:17)
[2024-04-19] MEDS ORDERED: Sulfameth/Trimethoprim DS 800-160mg TAB ONE (16:07)
== END 2024-04-19 16:17 | disposition home or self-care (01) ==
LOC: NAV ERS 14:45
DX: L02.01 Cutaneous abscess of face (principal); F17.210 Nicotine dependence, cigarettes, uncomplicated; I10 Essential (primary) hypertension
CPT/HCPCS: 10060

== ENCOUNTER 2024-10-31 13:39 | Emergency (ER) | payer OTHER ==
[2024-10-31 14:21] LABS: #Basophils 0.1 thou/uL (0.0-0.2); #Eosinophils 0.5 thou/uL (0.0-0.7); #Lymphocytes 1.2 thou/uL (1.20-3.40); #Monocytes 0.3 thou/uL (0.11-0.59); #Neutrophils 4.2 thou/uL (1.40-6.50); %Basophils 0.8 % (0.0-1.0); %Eosinophils 7.7 % (0.0-10.0); %Lymphocytes 19.2 % (21.0-51.0); %Monocytes 5.2 % (0.0-10.0); %Neutrophils 67.1 % (42.0-75.0); Hematocrit 31.5 % (36.0-47.0); Hemoglobin 10.3 g/dL (12.0-16.0); Mean Corpuscular Hemoglobin 22.4 pg (27.0-31.0); Mean Corpuscular Volume 68.7 fl (78.0-98.0); Platelet Count 353 10x3/uL (130-400); Red Blood Cell (RBC) Count 4.59 mill/uL (4.20-5.40); White Blood Cell (WBC) Count 6.3 10x3/uL (4.8-10.8)
[2024-10-31 14:34] LABS: ALT (SGPT) 26 U/L (Less than 34); AST (SGOT) 29 U/L (11-34); Albumin 4.1 g/dL (3.1-4.5); Alkaline Phosphatase 93 U/L (40-110); Anion Gap 14 mmol/L (10-20); BUN (Urea Nitrogen) 8 mg/dL (7.0-18.7); Bilirubin, Total 0.9 mg/dL (0.3-1.2); Calc. Creatinine Clearance 0 mL/min (70-130); Calcium 9.0 mg/dL (7.8-10.44); Carbon Dioxide 21 mmol/L (22-29); Chloride 111 mmol/L (98-107); Globulin 2.9 g/dL (2.4-3.5); Glucose 81 mg/dL (70-105); Potassium 4.0 mmol/L (3.5-5.1); Sodium 142 mmol/L (136-145)
[2024-10-31 14:35] LABS: Troponin I Less than 0.010 ng/mL (< 0.028)
[2024-10-31] MEDS ORDERED: Ketorolac Tromethamine 30 MG (1 mL) VIAL ONE (15:40)
[2024-10-31 16:15] LABS: Troponin I Less than 0.010 ng/mL (< 0.028)
[2024-10-31 21:06] LABS: Anisocytosis SLIGHT = 6-15 cells (100X) (0-5/hpf); Poikilocytosis MODERATE=16-30 cells (100X) (0-5/hpf)
[2024-10-31 21:10] LABS: Schistocytes SLIGHT = 2-5 cells (100X) (0-1/hpf)
[2024-10-31 21:13] LABS: Platelet Adequacy Comment Appears Adequate
== END 2024-10-31 16:30 | disposition home or self-care (01) ==
LOC: EEVIPCON 13:39 → NAV ERS 13:39
DX: R07.9 Chest pain, unspecified (principal); J20.9 Acute bronchitis, unspecified; I10 Essential (primary) hypertension; F17.210 Nicotine dependence, cigarettes, uncomplicated
CPT/HCPCS: 71045; 80053; 84484; 85025; 93005; 96374; J1885